=== PATIENT | male | born 2000 | race Caucasian/White ===

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

== ENCOUNTER 2019-11-02 01:07 | Inpatient (IN) | payer MEDICAID ==
[~2019-11-02] VITALS: Ht 167.6 cm; Wt 67.8 kg
[2019-11-02] MEDS ORDERED: ONDANSETRON HCL 4 MG/2 ML VIAL IVP ONE (01:30)
[2019-11-02] MEDS ORDERED: SODIUM CHLORIDE 0.9% 1,000 ML IV ONE (01:30)
[2019-11-02] MEDS ORDERED: FAMOTIDINE 10 MG/ML 2 ML VIAL IVP ONE (01:30)
[2019-11-02] MEDS ORDERED: MAG HYDROX/AL HYDROX/SIMETH 30 ML SUSP UDCUP PO ONE (01:30)
[2019-11-02 01:53] LABS: BASOPHILS % (AUTO) 0.7 % (0.0-2.0); HEMATOCRIT 42.3 % (41-53); HEMOGLOBIN 14.5 g/dL (13.5-17.5); LYMPHOCYTES % (AUTO) 45.8 % (22.0-44.0); MEAN CORPUSCULAR HEMOGLOBIN 32.1 pg (26.0-34.0); MEAN CORPUSCULAR HGB CONC 34.3 G/dL (31.0-37.0); MEAN CORPUSCULAR VOLUME 93 fL (80-100); MONOCYTES # (AUTO) 0.3 K/uL (0.1-1.0); MONOCYTES % (AUTO) 5.2 % (2.0-9.0); NEUTROPHILS # (AUTO) 2.9 K/uL (1.8-7.7); NEUTROPHILS % (AUTO) 44.3 % (40.0-70.0); PLATELET COUNT (AUTO) 282 K/uL (150-450); RED BLOOD CELL COUNT(AUTO) 4.53 MIL/uL (4.50-5.90); RED CELL DISTRIBUTION WIDTH 13.8 % (11.5-14.5)
[2019-11-02] MEDS ORDERED: LORazepam 2 MG/ML VIAL IM ONE (02:00)
[2019-11-02] MEDS ORDERED: HALOPERIDOL LACTATE 5 MG/ML VIAL IM ONE (02:00)
[2019-11-02] MEDS ORDERED: DiphenhydrAMINE HCL 50 MG/ML VIAL IM ONE (02:00)
[2019-11-02 02:07] LABS: D-DIMER 0.35 mg/L FEU (0.00-0.50); PROTHROMBIN TIME 10.3 SEC (9.4-11.6)
[2019-11-02 02:11] LABS: ANION GAP 10 mmol/L (8-16); CALCIUM, TOTAL 8.9 mg/dL (8.8-10.5); CARBON DIOXIDE 24 mmol/L (22-29); CHLORIDE 108 mmol/L (98-107); CREATININE 0.93 mg/dL (0.60-1.30); GLOMERULAR FILTR. RATE CALC > 60 mL/min (>60); GLUCOSE,RANDOM 101 mg/dL (70-110); POTASSIUM 3.6 mmol/L (3.5-5.1); SODIUM SERUM 142 mmol/L (136-145); UREA NITROGEN, BLOOD 11 mg/dL (7-18)
[2019-11-02 02:23] LABS: ALANINE AMINOTRANSFERASE 28 U/L (12-78); ALBUMIN 4.4 g/dL (3.4-5.0); ALKALINE PHOSPHATASE 92 U/L (46-116); ASPARTATE AMINOTRANSFERASE 25 U/L (15-37); BILIRUBIN,TOTAL 0.3 mg/dL (0.1-1.0); LACTATE DEHYDROGENASE 161 U/L (85-227); TOTAL PROTEIN, SERUM 7.9 g/dL (6.4-8.2)
[2019-11-02] MEDS ORDERED: 0.9% SODIUM CHLORIDE 10 ML SYRINGE IVP PRN ×2 (02:45→05:15)
[2019-11-02] MEDS ORDERED: ACETAMINOPHEN 325 MG TABLET PO PRN ×2 (02:45→05:15)
[2019-11-02 02:47] LABS: C-REACTIVE PROTEIN QUANT < 0.05 mg/dL (0.00-0.30); FERRITIN 198 ng/mL (26-388)
[2019-11-02 03:55] LABS: AMPHET/METH SCREEN,URINE NEGATIVE (NEGATIVE); BARBITURATE SCREEN, URINE NEGATIVE (NEGATIVE); BENZODIAZEPINES SCREEN,URINE NEGATIVE (NEGATIVE); CANNABINOID SCREEN,URINE POSITIVE (NEGATIVE); COCAINE SCREEN,URINE NEGATIVE (NEGATIVE); METHADONE SCREEN, URINE NEGATIVE (NEGATIVE); OPIATE SCREEN,URINE NEGATIVE (NEGATIVE)
[2019-11-02 04:01] LABS: PHENCYCLIDINE SCREEN,URINE NEGATIVE (NEGATIVE)
[2019-11-02] MEDS ORDERED: ONDANSETRON HCL 4 MG/2 ML VIAL IVP PRN (05:15)
[2019-11-02] MEDS ORDERED: LORazepam 2 MG TABLET PO PRN (05:45)
[2019-11-02] MEDS: 1: MAGNESIUM SULFATE 2 GM, MVI, ADULT NO.1 WITH VIT K 10 ML, THIAMINE 100 MG, FOLIC ACID IV SCH ×10 (07:29→19:49)
[2019-11-02 08:55] VITALS: BP 116/64
[2019-11-02 09:00] VITALS: BP 124/60
[2019-11-02] MEDS ORDERED: ENOXAPARIN SODIUM 40 MG/0.4 ML PF SYRINGE SQ SCH (09:00)
[2019-11-02 15:20] VITALS: BP 122/58
[2019-11-02 20:00] VITALS: BP 110/66
[2019-11-03 04:00] VITALS: BP 111/72
[2019-11-03 07:12] LABS: BASOPHILS % (AUTO) 0.5 % (0.0-2.0); EOSINOPHILS % (AUTO) 3.5 % (1.0-6.0); HEMOGLOBIN 14.4 g/dL (13.5-17.5); LYMPHOCYTES # (AUTO) 1.8 K/uL (1.0-4.8); LYMPHOCYTES % (AUTO) 30.7 % (22.0-44.0); MEAN CORPUSCULAR HEMOGLOBIN 32.1 pg (26.0-34.0); MEAN CORPUSCULAR HGB CONC 34.3 G/dL (31.0-37.0); MEAN CORPUSCULAR VOLUME 94 fL (80-100); MONOCYTES # (AUTO) 0.5 K/uL (0.1-1.0); NEUTROPHILS # (AUTO) 3.3 K/uL (1.8-7.7); NEUTROPHILS % (AUTO) 57.3 % (40.0-70.0); PLATELET COUNT (AUTO) 253 K/uL (150-450); RED BLOOD CELL COUNT(AUTO) 4.48 MIL/uL (4.50-5.90); RED CELL DISTRIBUTION WIDTH 13.7 % (11.5-14.5)
[2019-11-03 07:15] LABS: ALANINE AMINOTRANSFERASE 24 U/L (12-78); ALBUMIN 4.1 g/dL (3.4-5.0); ALKALINE PHOSPHATASE 68 U/L (46-116); ANION GAP 6 mmol/L (8-16); ASPARTATE AMINOTRANSFERASE 23 U/L (15-37); BILIRUBIN,TOTAL 0.8 mg/dL (0.1-1.0); CALCIUM, TOTAL 9.1 mg/dL (8.8-10.5); CARBON DIOXIDE 29 mmol/L (22-29); CHLORIDE 106 mmol/L (98-107); CREATININE 0.81 mg/dL (0.60-1.30); GLOMERULAR FILTR. RATE CALC > 60 mL/min (>60); GLUCOSE,RANDOM 84 mg/dL (70-110); POTASSIUM 3.6 mmol/L (3.5-5.1); SODIUM SERUM 141 mmol/L (136-145); TOTAL PROTEIN, SERUM 7.5 g/dL (6.4-8.2); UREA NITROGEN, BLOOD 11 mg/dL (7-18)
[2019-11-03 07:29] VITALS: BP 120/67
[2019-11-03] MEDS ORDERED: SODIUM CHLORIDE 0.9% 1,000 ML ONE (08:04)
[2019-11-03] MEDS: LORazepam 2 MG TABLET PO SCH ×4 (08:26→21:42)
[2019-11-03] MEDS: 1: MAGNESIUM SULFATE 2 GM, MVI, ADULT NO.1 WITH VIT K 10 ML, THIAMINE 100 MG, FOLIC ACID IV SCH ×5 (08:52)
[2019-11-03] MEDS ORDERED: LITH300C3 PO (10:25)
[2019-11-03 11:13] VITALS: BP 118/68
[2019-11-03] MEDS: LORazepam 2 MG TABLET PO PRN ×2 (14:30→19:51)
[2019-11-03 14:59] VITALS: BP 122/64
[2019-11-03 19:50] VITALS: BP 121/84
[2019-11-03] MEDS ORDERED: LITHIUM CARBONATE 300 MG CAPSULE PO SCH (21:00)
[2019-11-03] MEDS: ZINC SULFATE 220 MG CAPSULE PO SCH (21:42)
[2019-11-03 23:31] VITALS: BP 123/76
[2019-11-04] MEDS: LORazepam 2 MG TABLET PO PRN (00:42)
[2019-11-04 03:43] VITALS: BP 114/77
[2019-11-04 07:14] VITALS: BP 122/78
[2019-11-04] MEDS: LORazepam 2 MG TABLET PO SCH ×4 (09:00→20:04)
[2019-11-04] MEDS: MULTIVITAMINS WITH MINERALS, THERAPEUTIC TABLET PO SCH (09:00)
[2019-11-04] MEDS: ZINC SULFATE 220 MG CAPSULE PO SCH ×2 (09:00→20:06)
[2019-11-04 11:00] VITALS: BP 118/84
[2019-11-04 15:45] VITALS: BP 126/72
[2019-11-04 19:15] VITALS: BP 124/89
[2019-11-04] MEDS ORDERED: LITHIUM CARBONATE 300 MG CAPSULE PO SCH (21:00)
[2019-11-05 04:31] VITALS: BP 122/77
[2019-11-05] MEDS ORDERED: LORazepam 1 MG TABLET PO PRN (07:00)
[2019-11-05 08:28] VITALS: BP 113/82
[2019-11-05] MEDS: MULTIVITAMINS WITH MINERALS, THERAPEUTIC TABLET PO SCH (08:54)
[2019-11-05] MEDS: ZINC SULFATE 220 MG CAPSULE PO SCH (08:54)
[2019-11-05] MEDS ORDERED: LORazepam 1 MG TABLET PO SCH (09:00)
[2019-11-05] MEDS ORDERED: FLUoxetine HCL 10 MG CAPSULE PO SCH (09:00)
[2019-11-05] MEDS ORDERED: LITH300CRT PO (09:30)
[2019-11-05] MEDS ORDERED: PROZ10 PO (09:31)
[2019-11-06] MEDS ORDERED: LORazepam 1 MG TABLET PO PRN (07:00)
== END 2019-11-05 10:10 | DRG 137 ==
LOC: EMS 01:07 → 6S 02:40
PROVIDERS: ADMIT Internal Medicine; ATTEND Internal Medicine
DX: U07.1 COVID-19 (principal); F10.10 Alcohol abuse, uncomplicated; R45.851 Suicidal ideations; Y90.8 Blood alcohol level of 240 mg/100 ml or more; F19.10 Other psychoactive substance abuse, uncomplicated; F31.9 Bipolar disorder, unspecified; F41.9 Anxiety disorder, unspecified; Z91.19 Patient's noncompliance with other medical treatment and regimen
CPT/HCPCS: 82728; 83615; 85379; 86140; 93005; G0480; J1650; J2405; J3411; J3475; J3490; J7030; 36415-L1; 36415-TC; 71045-TC; U0003-CS

== ENCOUNTER 2022-10-20 01:19 | Inpatient (IN) | payer MEDICAID, OTHER ==
[2022-10-20] VITALS (9 sets, daily range): BP systolic 108–136; BP diastolic 59–90; PULSE 70–99; RESP 16–18; TEMP 97.4–98; O2SAT 96–99
[~2022-10-20] VITALS: Ht 172.7 cm; Wt 75.1 kg
[~2022-10-20 01:19] MED LIST: FLUO10CA24 PO; LITH300CRT PO
[2022-10-20 02:11] LABS: COVID AG,FIA SOURCE NASAL SWAB
[2022-10-20 02:12] LABS: BASOPHILS % (AUTO) 0.9 % (0.0-2.0); EOSINOPHILS % (AUTO) 0.2 % (1.0-6.0); HEMATOCRIT 42.6 % (41-53); HEMOGLOBIN 14.5 g/dL (13.5-17.5); LYMPHOCYTES % (AUTO) 23.4 % (22.0-44.0); MEAN CORPUSCULAR HEMOGLOBIN 31.9 pg (26.0-34.0); MEAN CORPUSCULAR VOLUME 94 fL (80-100); MONOCYTES # (AUTO) 0.3 K/uL (0.1-1.0); MONOCYTES % (AUTO) 4.1 % (2.0-9.0); NEUTROPHILS % (AUTO) 71.4 % (40.0-70.0); PLATELET COUNT (AUTO) 247 K/uL (150-450); RED BLOOD CELL COUNT(AUTO) 4.55 MIL/uL (4.50-5.90); RED CELL DISTRIBUTION WIDTH 14.9 % (11.5-14.5)
[2022-10-20 02:21] LABS: ANION GAP 12 mmol/L (8-16); CARBON DIOXIDE 23 mmol/L (22-29); CHLORIDE 103 mmol/L (98-107); GLOMERULAR FILTR. RATE CALC > 60 mL/min (>60); GLUCOSE,RANDOM 117 mg/dL (70-110); SODIUM SERUM 138 mmol/L (136-145)
[2022-10-20 02:27] LABS: ALANINE AMINOTRANSFERASE 23 U/L (12-78); ALBUMIN 4.6 g/dL (3.4-5.0); ALKALINE PHOSPHATASE 78 U/L (46-116); ASPARTATE AMINOTRANSFERASE 26 U/L (15-37); BILIRUBIN,TOTAL 0.4 mg/dL (0.1-1.0); TOTAL PROTEIN, SERUM 8.2 g/dL (6.4-8.2)
[2022-10-20 02:29] LABS: AMPHET/METH SCREEN,URINE NEGATIVE (NEGATIVE); BARBITURATE SCREEN, URINE NEGATIVE (NEGATIVE); BENZODIAZEPINES SCREEN,URINE NEGATIVE (NEGATIVE); CANNABINOID SCREEN,URINE POSITIVE (NEGATIVE); COCAINE SCREEN,URINE POSITIVE (NEGATIVE); METHADONE SCREEN, URINE NEGATIVE (NEGATIVE); OPIATE SCREEN,URINE NEGATIVE (NEGATIVE); PHENCYCLIDINE SCREEN,URINE NEGATIVE (NEGATIVE)
[2022-10-20] MEDS ORDERED: HALOPERIDOL 5 MG TABLET PO PRN (02:45)
[2022-10-20] MEDS ORDERED: LORazepam 2 MG TABLET PO PRN (02:45)
[2022-10-20 03:32] LABS: LITHIUM < 0.20 mmol/L (0.60-1.20)
[2022-10-20 03:34] LABS: APPEARANCE,URINE CLEAR (CLEAR); BILIRUBIN,URINE NEGATIVE (NEGATIVE); GLUCOSE, URINE (UA) NEGATIVE (NEGATIVE); KETONES,URINE NEGATIVE (NEGATIVE); LEUKOCYTE ESTERASE ,URINE NEGATIVE (NEGATIVE); NITRATE,URINE NEGATIVE (NEGATIVE); OCCULT BLOOD,URINE SMALL (NEGATIVE); PH,URINE 5.5 (5.0-8.0); PROTEIN,URINE TRACE mg/dL (NEGATIVE); SPECIFIC GRAVITIY, URINE 1.019 (1.003-1.030); UROBILINOGEN,URINE <=1.0 mg/dL (<=1.0)
[2022-10-20] MEDS: ZOLPIDEM TARTRATE 10 MG TABLET PO PRN ×2 (03:36→22:26)
[2022-10-20 03:37] LABS: BACTERIA,URINE None Seen /HPF (None Seen); RBC,URINE 0-2 /HPF (0-2); SQUAMOUS EPITHELIAL CELL,UR Few /LPF (None Seen); WBC,URINE None Seen /HPF (0-5)
[2022-10-20] MEDS ORDERED: MELATONIN 5 MG TABLET PO ONE (03:45)
[2022-10-20] MEDS: LITHIUM CARBONATE 300 MG CAPSULE PO SCH (16:19)
[2022-10-20] MEDS ORDERED: ONDANSETRON HCL 4 MG TABLET PO PRN (18:15)
[2022-10-20] MEDS ORDERED: IBUPROFEN 600 MG TABLET PO PRN (18:15)
[2022-10-20] MEDS ORDERED: MAG HYDROX/AL HYDROX/SIMETH ES 30 ML SUSPENSION UDCUP PO PRN (18:15)
[2022-10-20] MEDS ORDERED: PETROLATUM,WHITE 28 GM JELLY TP PRN (18:15)
[2022-10-20] MEDS ORDERED: ACETAMINOPHEN 325 MG TABLET PO PRN (18:15)
[2022-10-20] MEDS ORDERED: DOCUSATE SODIUM 100 MG CAPSULE PO PRN (18:15)
[2022-10-20] MEDS ORDERED: CloNIDine HCL 0.1 MG TABLET PO PRN (18:15)
[2022-10-20] MEDS ORDERED: OMEPRAZOLE 20 MG CAPSULE PO PRN (18:15)
[2022-10-20] MEDS ORDERED: BENZOCAINE/MENTHOL LOZENGE PO PRN (18:15)
[2022-10-20] MEDS ORDERED: MAGNESIUM HYDROXIDE SUSPENSION 30 ML UDCUP PO PRN (18:15)
[2022-10-20] MEDS ORDERED: LOPERAMIDE HCL 2 MG CAPSULE PO PRN (18:15)
[2022-10-20] MEDS ORDERED: BACITRACIN 28 GM OINTMENT TP PRN (18:15)
[2022-10-20] MEDS ORDERED: ALBUTEROL SULFATE HFA 90 MCG/PUFF 8 GM INHALER IH PRN (18:15)
[2022-10-21 02:00] VITALS: BP 128/72; PULSE 72; RESP 17; TEMP 97.6; O2SAT 97
[2022-10-21 05:10] VITALS: BP 121/82; PULSE 72; RESP 18; TEMP 97.8; O2SAT 98
[2022-10-21] MEDS: LITHIUM CARBONATE 300 MG CAPSULE PO SCH ×2 (08:33→16:38)
[2022-10-21 08:43] VITALS: BP 112/66; PULSE 61; RESP 17; TEMP 98.9
[2022-10-21 09:17] VITALS: BP 112/66; PULSE 61; RESP 17; TEMP 98.9
[2022-10-21 20:05] VITALS: BP 124/86; PULSE 82; RESP 18; TEMP 97.9
[2022-10-21] MEDS: ZOLPIDEM TARTRATE 10 MG TABLET PO PRN (21:05)
[2022-10-22] MEDS: LITHIUM CARBONATE 300 MG CAPSULE PO SCH ×2 (08:28→16:33)
[2022-10-22 08:32] VITALS: BP 117/63; PULSE 67; RESP 18; TEMP 97.6; O2SAT 96
[2022-10-22] MEDS: ZOLPIDEM TARTRATE 10 MG TABLET PO PRN (20:17)
[2022-10-22 21:29] VITALS: BP 142/65; PULSE 78; RESP 17; TEMP 97.5; O2SAT 95
[2022-10-23 08:15] VITALS: BP 124/62; PULSE 76; RESP 18; TEMP 97.5; O2SAT 98
[2022-10-23] MEDS: LITHIUM CARBONATE 300 MG CAPSULE PO SCH ×2 (08:22→16:22)
[2022-10-23 20:03] VITALS: BP 139/85; PULSE 73; RESP 18; TEMP 98.2
[2022-10-23] MEDS: ZOLPIDEM TARTRATE 10 MG TABLET PO PRN (21:26)
[2022-10-24] MEDS: LITHIUM CARBONATE 300 MG CAPSULE PO SCH (08:28)
[2022-10-24 08:37] VITALS: BP 119/54; PULSE 76; RESP 18; TEMP 98.2; O2SAT 98
[2022-10-24 11:05] VITALS: BP 129/84; PULSE 76; RESP 18; TEMP 98.2; O2SAT 98
[2022-10-24] MEDS ORDERED: LITH300C3 PO (12:41)
== END 2022-10-24 14:30 | disposition home or self-care (01) | DRG 750 ==
LOC: EMS 01:19 → B2S 04:17
PROVIDERS: ADMIT Psychiatry & Neurology Psychiatry; ATTEND Psychiatry & Neurology Psychiatry
DX: F25.9 Schizoaffective disorder, unspecified (principal); R45.851 Suicidal ideations; F10.129 Alcohol abuse with intoxication, unspecified; F19.10 Other psychoactive substance abuse, uncomplicated; F31.9 Bipolar disorder, unspecified; Z20.822 Contact with and (suspected) exposure to COVID-19; K21.9 Gastro-esophageal reflux disease without esophagitis; G47.00 Insomnia, unspecified; F41.9 Anxiety disorder, unspecified; K59.00 Constipation, unspecified; Z79.899 Other long term (current) drug therapy
CPT/HCPCS: 80053; 80178; 80307; 81001; 85025; 99285; G0480